=== PATIENT | male | born 1960 | race Caucasian/White ===

== ENCOUNTER → 2016-12-02 | Outpatient (CLI) | payer BC ==
[2016-12-02 11:51] LABS: BLOOD UREA NITROGEN 18 MG/DL (7-18); CREATININE FOR GFR 1.07 MG/DL (0.70-1.30); GLOMERULAR FILTRATION RATE > 60.0 (>56)
--- NOTE | 2016-12-02 13:40 | REP ---
MR BRAIN WITHOUT AND WITH CONTRAST: HISTORY: Hearing loss. Contrast: ProHance 16 mL. There are no areas of abnormal signal intensity in the brain. There is no intraparenchymal hemorrhage, infarct mass, or midline shift. 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 There is no abnormal enhancement. The ventricular system is normal in appearance. There is no extracerebral collection. There is no cerebellopontine angle mass. The inner ear structures are normal in appearance. Mucosal thickening is present in the right mastoid air cells and ethmoid and left maxillary sinuses. IMPRESSION: There is no intracranial lesion. Signed by Pranav Urena MD 12/02/2016 01:45 P
== END ==
LOC: M LAB 10:57
PROVIDERS: ATTEND Otolaryngology
DX: H90.3 Sensorineural hearing loss, bilateral (principal)
CPT/HCPCS: 36415; 70553; 82565; 84520; A9576

== ENCOUNTER → 2018-11-23 | Outpatient (CLI) | payer BC | LOC: M SMT 09:19 | PROVIDERS: ATTEND Nurse Practitioner Women's Health | DX: Z12.5 Encounter for screening for malignant neoplasm of prostate (principal) | CPT/HCPCS: 36415; G0103 ==